=== PATIENT | male | born 1975 | race Hispanic/Latino ===

== ENCOUNTER → 2023-03-26 | Outpatient (CLI) | payer OTHER, MEDICARE ==
[~2023-03-26] MED LIST: ALPR-412 PO; AMLO-258 PO; AMOX500C2 PO; CIPR-278 PO; CLAR-44 PO; HYDR-4068 PO; LANS30CA55 PO; MESA0.37 PO; METR-172 PO; OMEG1CAP6 PO; PANT40TA54 PO; PRED10TA23 PO; QUET100T34 PO; TRAZ-187 PO; ZOLP10TA6 PO
[2023-03-26 16:35] LABS: POTASSIUM 4.1 mmol/L (3.5-5.1)
== END | disposition home or self-care (01) ==
LOC: LAB 11:59
PROVIDERS: ATTEND Internal Medicine Cardiovascular Disease
DX: I10 Essential (primary) hypertension (principal); R07.9 Chest pain, unspecified
CPT/HCPCS: 36415; 80048

== ENCOUNTER → 2023-03-27 | Outpatient (CLI) | payer OTHER, MEDICARE ==
[~2023-03-27] MED LIST changes: +IOHEXOL 350 MG/ML 100ML INFUS..BTL IV ONE; +METOPROLOL TARTRATE 1 MG/ML 5ML VIAL IV ONE
== END | disposition home or self-care (01) ==
LOC: RAH 09:49
PROVIDERS: ATTEND Internal Medicine Cardiovascular Disease
DX: R07.9 Chest pain, unspecified (principal); M47.815 Spondylosis without myelopathy or radiculopathy, thoracolumbar region
CPT/HCPCS: 75574; J3490; Q9967

== ENCOUNTER → 2023-09-11 | Outpatient (CLI) | payer OTHER, MEDICARE ==
[~2023-09-11] MED LIST changes: -IOHEXOL 350 MG/ML 100ML INFUS..BTL IV ONE; -METOPROLOL TARTRATE 1 MG/ML 5ML VIAL IV ONE
[2023-09-11 12:13] LABS: ALBUMIN 4.3 g/dL (3.5-5.0); BILIRUBIN,TOTAL 0.6 mg/dL (0.2-1.0); CREATININE 1.1 mg/dL (0.5-1.3); POTASSIUM 4.3 mmol/L (3.5-5.1); TOTAL PROTEIN, SERUM 7.9 g/dL (6.0-8.3)
== END | disposition home or self-care (01) ==
LOC: LAB 10:50
PROVIDERS: ATTEND Physician Assistant
DX: I10 Essential (primary) hypertension (principal)
CPT/HCPCS: 36415; 80053